=== PATIENT | male | born 1980 | race Caucasian/White ===

== ENCOUNTER 2025-03-01 17:04 | Emergency (ER) | payer BC ==
[2025-03-01] MEDS ORDERED: Naloxone 0.4 MG/ML SDV IVPUSH PRN (17:23)
[2025-03-01] MEDS: Diphtheria,Pertussis(Acell),Tetanus Vaccine 0.5 ML Syringe IM ONE (17:44)
[2025-03-01] MEDS: Lidocaine 1% with EPINEPHrine 1:100,000 20 ML MDV ONE (18:22)
[2025-03-01] MEDS: Lidocaine 1% with EPINEPHrine 1:100,000 20 ML MDV INJECT ONE (18:30)
[2025-03-01 18:59] VITALS: BP 115/79; PULSE 89
== END 2025-03-01 18:55 | disposition home or self-care (01) ==
LOC: JD.ED 17:04
DX: S51.812A Laceration without foreign body of left forearm, initial encounter (principal); E11.9 Type 2 diabetes mellitus without complications; Z23 Encounter for immunization; Z79.899 Other long term (current) drug therapy; W26.8XXA Contact with other sharp object(s), not elsewhere classified, initial encounter; Y93.89 Activity, other specified
CPT/HCPCS: 12002; 73090; 90471; 90715; 96374; 99283; J2003; J2004; J1171